=== PATIENT | male | born 1940 | race Caucasian/White ===

== ENCOUNTER 2017-08-07 16:24 | Inpatient (IN) | payer MEDICARE, OTHER ==
[2017-08-07 17:17] LABS: % BASOPHILS 2.8 % (0.0-2.0); % EOSINOPHILS 3.5 % (0.0-5.0); % LYMPHOCYTES 24.5 % (20.0-50.0); % MONOCYTES 9.6 % (2.0-10.0); % NEUTROPHILS 59.6 % (40.0-80.0); BASOPHILE ABSOLUTE 0.2 Th/cumm (0-0.2); EOSINOPHILE ABSOLUTE 0.2 Th/cmm (0.1-0.4); HEMATOCRIT 39.2 % (41.0-60); HEMOGLOBIN 13.1 gm/dL (12-16); LYMPHOCYTE ABSOLUTE 1.6 Th/cmm (1.5-3.0); MEAN CELL VOLUME 91.6 fl (80-99); MEAN CORPUSCULAR HEMOGLOBIN 30.6 pg (27.0-31.0); MEAN CORPUSCULAR HGB CONC 33.4 pg (28.0-36.0); MEAN PLATELET VOLUME 6.2 fl; MONOCYTE ABSOLUTE 0.6 Th/cmm (0.3-1.0); NEUTROPHILE ABSOLUTE 3.9 Th/cmm (1.8-8.0); PLATELET COUNT 337 Th/cmm (150-400); RED BLOOD COUNT 4.28 Mil/cmm (3.80-5.80); RED CELL DISTRIBUTION WIDTH 13.9 % (11.5-20.0); WHITE BLOOD COUNT 6.5 Th/cmm (4.8-10.8)
--- NOTE | 2017-08-07 17:21 | ED Physician Chart ---
ED Chief Complaint/HPI - Patient Information Date Seen:: 08/07/17 Time Seen:: 16:25 Chief Complaint:: Agitation History of Present Illness:: onset x 3 days of agitation and aggressive behavior; no report of trauma, H/As, S/T, neck pain, C/P, SOB, cough, Abd. Pain, A/N/V/D/C, fever, chills, SIs, or urinary s/s Allergies:: Allergies Allergy/AdvReac Type Severity Reaction Status Date / Time No Known Allergies Allergy Verified 08/07/17 16:37 Vitals:: Vital Signs - 8 hr 08/07/17 16:24 Temp 98.4 F HR 77 RR 16 BP 117/65 O2 Sat % 97 Historian:: Patient, EMS Review:: Nurse's Note Reviewed, Old Chart Reviewed, EMS run form Reviewed ED Review of Systems - Review of Systems General/Constitutional: No fever, No chills, No weight loss, Weakness, No diaphoresis, No edema, No loss of appetite Skin: No skin lesions, No rash, No bruising Head: No headache, No light-headedness Eyes: No loss of vision, No pain, No diplopia ENT: No earache, No nasal drainage, No sore throat, No tinnitus Neck: No neck pain, No swelling, No thyromegaly, No stiffness, No mass noted Cardio Vascular: No chest pain, No palpitations, No PND, No orthopnea, No edema Pulmonary: SOB, Cough, No sputum, Wheezing GI: No nausea, No vomiting, No diarrhea, No pain, No melena, No hematochezia, No constipation, No hematemesis G/U: No dysuria, No frequency, No hematuria, No nacturia Musculoskeletal: No bone or joint pain, No back pain, No muscle pain Endocrine: Polyuria, Polydipsia Psychiatric: Prior psych history, No depression, Anxiety, No suicidal ideation, No homicidal ideation, No auditory hallucination, No visual hallucination Hematopoietic: No bruising, No lymphadenopathy Allergic/Immuno: No urticaria, No angioedema Neurological: No syncope, No focal symptoms, Weakness, No paresthesia, No headache, No seizure, No dizziness, No confusion, No vertigo ED Past Medical History - Past Medical History Obtainable: Yes Past Medical History: HTN, DM, Asthma/COPD, PUD/GERD, Arthritis Family History: Diabetes Melitus, HTN Social History: Non Smoker, No Alcohol, No Drug Use, Single, Care Facility Surgical History: None Psychiatricy History: Bipolar Medication: Reviewed ED Physical Exam - Physical Examination General/Constitutional: Awake, Well-developed, well-nourished, Alert, No distress, GCS 15, Non-toxic appearing, Ambulatory Head: Atraumatic Eyes: Lids, conjuctiva normal, PERRL, EOMI Skin: Nl inspection, No rash, No skin lesions, No ecchymosis, Well hydrated, No lymphadenopathy ENMT: External ears, nose nl, TM canals nl, Nasal exam nl, Lips, teeth, gums nl , Oropharynx nl, Tonsils nl Neck: Nontender, Full ROM w/o pain, No JVD, No nuchal rigidity, No bruit, No mass, No stridor Respiratory: Nl effort/Exclusion, Clear to Auscultation, No Wheeze/Rhonchi/Rales Cardio Vascular: RRR, No murmur, gallop, rubs, NL S1 S2, Carotid/Femoral/Distal pulses equal bilaterally GI: No tenderness/rebounding/guarding, No organomegaly, No hernia, Normal BS's, Nondistended, No mass/bruits, No McBurney tenderness : No CVA tenderness Extremities: No tenderness or effusion, Full ROM, normal strength in all extremities, No edema, Normal digits & nails Neuro/Psych: Alert/oriented, DTR's symmetric, Normal sensory exam, Normal motor strength, Judgement/insight normal, Mood normal, Normal gait, No focal deficits Other Neuro/Psych comments:: + Psychomotor Agitation; no SIs; Mood/Affect: Labile Misc: Normal back, No paraspinal tenderness ED Labs/Radiology/EKG Results - Lab Results Comments:: unremarkable - EKG Interpretations EKG Time:: 17:01 Rate & Rhythm: 80; NSR Comments:: RBBB; non-specific st-t changes ED Septic Shock - . Is Septic Shock (SBP<90, OR Lactate>4 mmol\L) present?: No - <6hrs of presentation: Vital Signs: Vital Signs - 8 hr 08/07/17 16:24 Temp 98.4 F HR 77 RR 16 BP 117/65 O2 Sat % 97 ED Reassessment (Disposition) - Reassessment Reassessment Condition:: Improved - Diagnosis Diagnosis:: Dx: Agitation; Bipolar Disorder; Psychosis; Medical Clearance - Aftercare/Follow up Instructions Aftercare/Follow-Up Instructions:: Counseled pt regarding lab results/diagnosis & need follow up, Counseled pt & family regarding lab results/diagnosis & need follow up - Patient Disposition Discharge/Transfer:: Acute Care w/in this hosp Admitted to:: [facility] Condition at Disposition:: Stable, Improved ED Discharge Plan - Patient Disposition Instructions: Psychosis
[2017-08-07 19:12] LABS: ALB/GLOB RATIO 1.2 (1.0-1.8); ALBUMIN 3.8 gm/dL (4.2-5.5); ALKALINE PHOSPHATASE 90 U/L (34-104); ANION GAP 11.2 (7.0-16.0); BILIRUBIN,TOTAL 0.5 mg/dL (0.3-1.0); BUN - UREA NITROGEN 14 mg/dL (7-25); CARBON DIOXIDE 27.2 mEq/L (21.0-31.0); CHLORIDE 95 mEq/L (98-107); CHOLESTEROL 135 mg/dL (<200); CREATININE - SERUM 0.5 mg/dL (0.7-1.3); GLUCOSE 97 mg/dL (70-105); HDL -HIGH DENSITY LIPOPROTEIN 49 mg/dL (23-92); POTASSIUM SERUM 4.4 mEq/L (3.5-5.1); SGOT 19 U/L (13-39); SGPT/ALT 15 U/L (7-52); SODIUM SERUM 129 mEq/L (136-145); TOTAL PROTEIN,SERUM 6.9 gm/dL (6.0-8.3); TRIGLYCERIDES 53 mg/dL (<150)
[2017-08-07 19:33] LABS: ACETAMINOPHEN < 10.0 ug/mL (10.0-30.0); SALICYLATES (ASPIRIN) < 25.0 mg/L (30.0-100.0)
[2017-08-08 02:00] VITALS: BP 136/80
[2017-08-08] MEDS ORDERED: Magnesium Hydroxide (MOM) 30 mL UDC PO PRN (02:32)
[2017-08-08] MEDS ORDERED: INSULIN ASPART, RECOMBINANT 100 UNITS/ML SUBQ SCH (02:45)
[2017-08-08] MEDS: Multivitamin w/ Minerals Tab PO SCH (10:00)
[2017-08-08 15:45] LABS: A1C % 6.3 % (4.0-6.0)
--- NOTE | 2017-08-08 17:00 | Psychosocial Evaluation ---
DATE OF SERVICE: 08/08/2017 IDENTIFYING DATA: The patient is a 77-year-old male, resident of [facility]. Information by directly interviewing the patient as well as reviewing the admission papers. DISPOSITION HOSPITALIZATION: The patient is admitted on a voluntary basis in view of his acute agitation and confusion. CHIEF COMPLAINT: "What you need from me." HISTORY OF PRESENT ILLNESS: This is the first psychiatric hospitalization to [facility] for this patient who has been admitted on a voluntary basis from [facility] Acute ____. On the day of the hospitalization, the patient has been reported to be very irritable, angry and could not be contained and the patient has been ____ be very destructive. The patient could not be contained at a lower level of care and hence the patient has been transferred over here for further care. PAST PSYCHIATRIC HISTORY: Details are not known. MEDICAL HISTORY: Physical examination is requested to be done by Dr. Monzon. SUBSTANCE ABUSE HISTORY: None. PHYSICAL OR SEXUAL ABUSE HISTORY: None. LEGAL PROBLEMS: None at this time. STRENGTH AND ASSETS: The patient seems to be motivated. MENTAL STATUS EXAMINATION: The patient is a 77-year-old thin built, superficially cooperative. Eye contact is poor. Mood is irritable. Affect is constricted. The patient is getting easily irritable and agitated. The patient's coping skills are noted to be extremely poor. The patient has no insight into his illness. Coping skills are noted to be very poor. The patient has been trying to get out of the bed and even though he is not able to figure it out. He is not able to walk because of this neuropathy. The patient is alert and awake and the patient is aware that he is in the hospital, but short and long-term are noted to be very impaired. Attention span and concentration are noted to be poor at this time. The patient has short-term memory deficits, particularly nursing home memory seems to be little bit fair. The patient is screaming and yelling and has been having difficult time to follow the directions. DIAGNOSTIC IMPRESSION: AXIS I: 1a. Dementia and behavioral change secondary trait. 1b. Psychosis, not otherwise specified. AXIS II: None. AXIS III: Diabetes mellitus with neuropathy. IMMEDIATE TREATMENT PLAN: The patient is going to be observed on the inpatient unit, provided with supportive psychotherapy. The patient is going to be encouraged to participate in the groups and verbalize the concerns rather than to act out. ESTIMATED LENGTH OF STAY: 3-7 days. DISCHARGE CRITERIA: When he no longer a threat to self or others. [facility]# [id number]
[2017-08-09] MEDS: Multivitamin w/ Minerals Tab PO SCH (09:51)
--- NOTE | 2017-08-09 17:15 | Progress Notes ---
DATE: 08/09/2017 SUBJECTIVE: Staff was spoken to. The patient is interviewed. Mood is noted to be irritable. Affect is constricted. Insight and judgment at this time would be still impaired. Impulse control is poor. The patient is getting easily frustrated. Coping skills are noted to be poor. Sleep and appetite also noted to be very poor. The patient has both short-term as well as long-term deficits. ASSESSMENT: The patient is still impulsive. PLAN: To continue the patient with the supportive therapy and followup. JOB# [id number]
--- NOTE | 2017-08-10 09:02 | History & Physical ---
ADMIT DATE: INFORMANT: JESUS hernandez. CHIEF COMPLAINT: Psychosis. HISTORY OF PRESENT ILLNESS: A 77-year-old male who presented to the [facility] Unit with the onset of agitation and aggressive behavior for approximately 3 days according to his correction. The patient has verbally been yelling at people and threatening other residents, so the nursing facility sent him to [facility] for continued workup. The patient is currently not taking any psychiatric medication; and uses Ativan as needed. The patient has been seen by Psych; and at this point in time, no further adjustments have been made. PAST MEDICAL HISTORY: Hypertension, diabetes, generalized anxiety disorder, psychosis, and bipolar disorder. MEDICATIONS: Reviewed and reconciled. VITAL SIGNS: Temperature 98.4, pulse 77, respirations 16, and blood pressure 117/65. ALLERGIES: No known allergies. SOCIAL HISTORY: The patient lives at a correction. Denies drugs, alcohol, or tobacco. REVIEW OF SYSTEMS: GENERAL: No fever, chills, or weight loss. SKIN: No lesions, rash, or bruising. HEENT: He denies headaches, visual changes, or difficulty swallowing. CARDIOVASCULAR: No chest pain, shortness of breath, or palpitations. PULMONARY: No cough, wheezing, or shortness of breath. GASTROINTESTINAL: No abdominal pain, nausea, or vomiting. MUSCULOSKELETAL: Denies weakness or falls. PSYCHIATRIC: Admits to bipolar disorder. PHYSICAL EXAMINATION: GENERAL: NAD. HEENT: PERRLA. EOMI. NECK: Supple. Trachea midline. CARDIOVASCULAR: Regular rate and rhythm. CHEST: CTA bilaterally. No wheeze, rales, or rhonchi. ABDOMEN: Soft, nontender, and nondistended. Bowel sounds positive in all 4 quadrants. SKIN: No rashes or open wounds. MUSCULOSKELETAL: Muscle strength is in bilateral upper and lower extremity is 4/5. PSYCH: Psychomotor agitation with labile mood. ASSESSMENT: 1. Metabolic encephalopathy. 2. Bipolar disorder. 3. Psychosis. 4. Hypertension. 5. Diabetes. 6. Hyponatremia. PLAN: Admit to [facility]. Ativan has been started. Psychiatry is following. Mechanical soft diet. ____ amlodipine. Regular Insulin sliding scale, Accu-Cheks, Ambien as needed for insomnia. JOB# [id number]
[2017-08-10] MEDS: Multivitamin w/ Minerals Tab PO SCH (09:49)
--- NOTE | 2017-08-11 02:02 | Progress Notes ---
DATE: 08/10/2017 PSYCHIATRIC PROGRESS NOTE TIME PATIENT SEEN: Staff was spoken to. The patient is interviewed. Mood is noted to be dysphoric. Coping skills are noted to be poor. Insight and judgment are also noted to be very much impaired. No side effects to the medications are noted. The patient is isolative and withdrawn today. The patient gets easily frustrated and angry. ASSESSMENT: The patient is still impulsive, psychotic and demented. PLAN: To continue the patient with the supportive therapy. I encouraged the patient to verbalize the concerns rather than to act out. JOB# [id number]
[2017-08-11] MEDS: Multivitamin w/ Minerals Tab PO SCH (09:32)
--- NOTE | 2017-08-11 21:19 | Progress Notes ---
DATE: 08/11/2017 PSYCHIATRIC PROGRESS NOTE SUBJECTIVE: Staff was spoken to. The patient is interviewed. Mood is noted to be irritable. Affect is constricted. The patient's insight and judgment are noted to be still impaired. Impulse control is noted to be poor. The patient is insisting that he wants to talk to the administer of the hospital because he does not belong in here. The patient is reported to have been having problem with his sleep and the patient is also noted to be very paranoid and hence it is decided to add a small dose of the Seroquel at night time and the patient is going to be closely monitored and encouraged to verbalize the concerns rather than to act out. Please note that the patient is not ready to be discharged to a lower level of care. JOB# [id number]
--- NOTE | 2017-08-12 03:19 | Consultation ---
DATE OF CONSULTATION: REQUESTING PHYSICIAN: Jose Armando Butler M.D. TYPE OF CONSULTATION: Psychology. HISTORY OF PRESENT ILLNESS: The following is by review of the medical record and by the patient's self report. The patient is a 77-year-old male who is a resident of [facility]. The patient is being admitted due to acute agitation and increased confusion. According to the staff at the patient's facility, he has been reported to be irritable and angry as well as having uncontrollable behavior. The patient denied any incidents. The patient did not answer questions about suicidal ideation, plan or intention, but did shake his head no to thoughts of self harm. PAST MEDICAL HISTORY: Please see history and physical by Dr. Monzon. PAST PSYCHIATRIC HISTORY: Records unavailable. SUBSTANCE ABUSE HISTORY: None. PSYCHOSOCIAL HISTORY: The patient is a resident of [facility]. The patient did not answer questions about family history or methodist affiliation. The patient did not answer questions about occupational history or educational history. The patient denies any history of physical or sexual abuse or any current legal problems. MENTAL STATUS EXAMINATION: The patient appears to be his stated age. The patient's attitude is superficially cooperative. Eye contact is fair to poor. Speech is normal. Mood is irritable. Affect is constricted. Thought process shows to be concrete and easily distractible. The patient denied any suicidal ideation, plan or intention. The patient denied any auditory or visual hallucinations. The patient's behavior has been difficult to redirect. On the unit, the patient has been having difficulty following staff directions and is having yelling episodes. The patient is easily agitated. Impulse control is inadequate. Concentration is poor. The patient was unable to sustain focus and attention. The patient did not participate in a memory assessment. The patient's immediate and short term memory are possibly impaired. Long-term memory needs further evaluation, but appears to be fair. The patient's sensorium is alert and oriented to person and place. The patient did not participate in interpretation of proverbs. Insight is poor. Judgment is compromised. DIAGNOSTIC IMPRESSION: AXIS I: 1. Dementia with behavioral disturbance. 2. Psychosis, not otherwise specified. AXIS II: Deferred. AXIS III: Please see history and physical. TREATMENT PLAN: The patient has been seen by Dr. Butler for psychiatric evaluation and for the management of the patient's psychotropic medications. We will provide supportive psychotherapy to include coping strategies for phase of life issues. We will provide de-escalation as well as motivational enhancement for the patient to become compliant and stay compliant with all aspects of his care and treatment plan as well as to follow through with staff direction. We will encourage the patient to verbalize his concerns versus acting out. We will continue to provide supportive therapy throughout the patient's stay. Thank you, Dr. Butler for this consult and the opportunity to participate with you in this patient's care. JOB# [id number] [place]
[2017-08-12] MEDS: Multivitamin w/ Minerals Tab PO SCH (09:40)
--- NOTE | 2017-08-13 07:36 | Progress Notes ---
DATE: 08/12/2017 Staff was spoken to. The patient is interviewed. Mood is noted to be irritable. Affect is constricted. Insight and judgment are noted to be poor. Impulse control is noted to be poor. The patient is screaming and yelling and stating that he should not be here. He is trying to call the police. The patient has no insight into his illness. The patient is getting easily frustrated. In view of ____, it is decided to encourage the patient to verbalize the concerns and the dose of the Seroquel is going to be increased to 25 mg at bedtime and the patient is going to be followed up with supportive therapy. JOB# [id number]
[2017-08-13] MEDS: Multivitamin w/ Minerals Tab PO SCH (10:38)
[2017-08-13] MEDS: INSULIN ASPART SLIDING SCALE 100 UNITS/ML UNIT SUBQ SCH (21:07)
--- NOTE | 2017-08-13 23:40 | Progress Notes ---
DATE: 08/13/2017 SUBJECTIVE: Staff was spoken to. The patient is interviewed. Mood is noted to be irritable. Affect is constricted. Coping skills are noted to be poor. Sleep and appetite are also noted to be very poor. The patient has been having difficult time to cope with the stress. The patient is currently on Seroquel 25 mg for his paranoia, agitation and the patient has been able to tolerate it. No side effects to the medications are noted. ASSESSMENT: The patient is still paranoid. PLAN: To continue the patient with the supportive therapy. I encouraged the patient to verbalize the concerns rather than to act out. JOB# [id number]
[2017-08-14] MEDS: INSULIN ASPART SLIDING SCALE 100 UNITS/ML UNIT SUBQ SCH ×4 (06:54→20:59)
[2017-08-14] MEDS: Multivitamin w/ Minerals Tab PO SCH (09:34)
--- NOTE | 2017-08-15 01:49 | Progress Notes ---
DATE: 08/14/2017 PSYCHIATRIC PROGRESS NOTE SUBJECTIVE: Staff was spoken to. The patient is interviewed. Mood is noted to be irritable. Affect is constricted. Insight and judgment are noted to be still impaired. The patient tends to scream and yell, but the patient needs to be redirected at this time. No side effects to the medications are noted. The patient has been having difficult time to participate in the groups. The patient is currently on 25 mg of the Seroquel at night time and has been able to tolerate. The patient in view of the impulsivity, it is decided to add a low dose of the Depakote, which is going to be given 125 mg twice a day and the patient is going to be followed up with the supportive therapy. JOB# [id number]
[2017-08-15] MEDS: INSULIN ASPART SLIDING SCALE 100 UNITS/ML UNIT SUBQ SCH ×4 (06:50→20:37)
[2017-08-15] MEDS: Multivitamin w/ Minerals Tab PO SCH (09:22)
--- NOTE | 2017-08-15 17:52 | Progress Notes ---
DATE: 08/15/2017 PSYCHIATRIC PROGRESS NOTE SUBJECTIVE: Staff was spoken to. The patient is interviewed. Mood is noted to be irritable. Affect is constricted. Insight and judgment at this time are noted to be still impaired. The patient has been placed on 120 mg of the Depakote to contain mood swings. The patient is also receiving the Seroquel 25 mg at bedtime. No side effects to medications are noted. ASSESSMENT: The patient is still having irritability and mood swings. PLAN: To continue the patient with the current medications and continue the Seroquel for paranoia and followup. JOB# [id number]
[2017-08-16] MEDS: INSULIN ASPART SLIDING SCALE 100 UNITS/ML UNIT SUBQ SCH ×4 (06:46→21:23)
[2017-08-16] MEDS: Multivitamin w/ Minerals Tab PO SCH (09:43)
--- NOTE | 2017-08-17 03:34 | Progress Notes ---
DATE: 08/16/2017 SUBJECTIVE: Staff was spoken to. The patient is interviewed. Mood is noted to be irritable. Affect is constricted. The patient is getting easily frustrated. Mood swings are noted. The patient is currently on Seroquel and Depakote and has been able to tolerate the medications. No side effects to the medications are noted today. ASSESSMENT: The patient is still having mood swings, but isolative and withdrawn. PLAN: To continue the patient with the supportive therapy. I encouraged the patient to verbalize the concerns rather than to act out. JOB# [id number]
[2017-08-17] MEDS: INSULIN ASPART SLIDING SCALE 100 UNITS/ML UNIT SUBQ SCH ×3 (06:54→20:33)
[2017-08-17] MEDS: Multivitamin w/ Minerals Tab PO SCH (08:58)
--- NOTE | 2017-08-18 05:18 | Progress Notes ---
DATE: 08/17/2017 SUBJECTIVE: Staff was spoken to. The patient is interviewed. Mood is noted to be anxious. Affect is constricted. Insight and judgment are improving. Impulse control seems to be fair. No side effects to the medications are noted. The patient has been trying to participate in the groups, but participation is noted to be very minimal during the daytime. ASSESSMENT: The patient is stabilizing today ____ a major behavioral problem. PLAN: To discharge the patient today for followup on an outpatient basis. JOB# [id number]
== END 2017-08-17 23:20 | DRG 884 ==
LOC: ER 16:24 → GERO 21:30
PROVIDERS: ADMIT Psychiatry & Neurology Psychiatry; ATTEND Psychiatry & Neurology Psychiatry
DX: F03.91 Unspecified dementia, unspecified severity, with behavioral disturbance (principal); G93.41 Metabolic encephalopathy; E87.1 Hypo-osmolality and hyponatremia; F29 Unspecified psychosis not due to a substance or known physiological condition; E11.40 Type 2 diabetes mellitus with diabetic neuropathy, unspecified; I10 Essential (primary) hypertension; J44.9 Chronic obstructive pulmonary disease, unspecified; K27.9 Peptic ulcer, site unspecified, unspecified as acute or chronic, without hemorrhage or perforation; K21.9 Gastro-esophageal reflux disease without esophagitis; M19.90 Unspecified osteoarthritis, unspecified site; F31.9 Bipolar disorder, unspecified; F41.1 Generalized anxiety disorder; Z83.3 Family history of diabetes mellitus; Z82.49 Family history of ischemic heart disease and other diseases of the circulatory system
CPT/HCPCS: 36415-UA; 80053-TC; 80061-TC; 80320-TC; 80329-TC; 82948-90; 83036-90; 84443-TC; 85025-TC; 86592-TC; 93005; J1815; Z7610

== ENCOUNTER 2018-08-25 21:22 | Inpatient (IN) | payer MEDICARE, OTHER ==
--- NOTE | 2018-08-25 22:12 | ED Physician Chart ---
ED Chief Complaint/HPI - Patient Information Date Seen:: 08/25/18 Time Seen:: 22:08 Chief Complaint:: agitation History of Present Illness:: 78 yr old male here for geropsych evaluation Allergies:: Allergies Allergy/AdvReac Type Severity Reaction Status Date / Time No Known Allergies Allergy Verified 08/07/17 16:37 Vitals:: Vital Signs - 8 hr 08/25/18 21:30 Temp 98.1 F HR 70 RR 18 BP 137/77 O2 Sat % 95 ED Review of Systems - Review of Systems General/Constitutional: No fever, No chills, No weight loss, No weakness, No diaphoresis, No edema, No loss of appetite Skin: No skin lesions, No rash, No bruising Head: No headache, No light-headedness Eyes: No loss of vision, No pain, No diplopia ENT: No earache, No nasal drainage, No sore throat, No tinnitus Neck: No neck pain, No swelling, No thyromegaly, No stiffness, No mass noted Cardio Vascular: No chest pain, No palpitations, No PND, No orthopnea, No edema Pulmonary: No SOB, No cough, No sputum, No wheezing GI: No nausea, No vomiting, No diarrhea, No pain, No melena, No hematochezia, No constipation, No hematemesis G/U: No dysuria, No frequency, No hematuria Musculoskeletal: No bone or joint pain, No back pain, No muscle pain Endocrine: No polyuria, No polydipsia Psychiatric: No prior psych history, No depression, No anxiety, No suicidal ideation Hematopoietic: No bruising, No lymphadenopathy Allergic/Immuno: No urticaria, No angioedema Neurological: No syncope, No focal symptoms, No weakness, No paresthesia, No headache, No seizure, No dizziness, No confusion, No vertigo ED Past Medical History - Past Medical History Past Medical History: Asthma/COPD, Other (muscle weakness abnormal posture muscle weakness hemiplegia cva) Family Medical History - Family Member Father History Unknown: Yes Hx Family Hypertension: Yes Hx Family Diabetes: Yes ED Physical Exam - Physical Examination General/Constitutional: Awake Head: Atraumatic Eyes: Lids, conjuctiva normal Skin: Nl inspection ENMT: External ears, nose nl Respiratory: Nl effort/Exclusion Cardio Vascular: No murmur, gallop, rubs GI: No tenderness/rebounding/guarding : No CVA tenderness Extremities: No tenderness or effusion Neuro/Psych: Alert/oriented ED Assessment - Assessment General Assessment: increasing agitation depression ED Septic Shock - . Is Septic Shock (SBP<90, OR Lactate>4 mmol\L) present?: No - <6hrs of presentation: Vital Signs: Vital Signs - 8 hr 08/25/18 21:30 Temp 98.1 F HR 70 RR 18 BP 137/77 O2 Sat % 95 ED Reassessment (Disposition) - Reassessment Reassessment:: geropsych evaluation for increasing depression and agitation and medical clearance - Diagnosis Diagnosis:: as above - Patient Disposition Discharge/Transfer:: Acute Care w/in this hosp Admitted to:: Med/Surg Condition at Disposition:: Stable
[2018-08-25 23:29] VITALS: BP 129/66
[2018-08-25] MEDS ORDERED: Maalox 30 mL Cup PO PRN (23:30)
[2018-08-25] MEDS ORDERED: Magnesium Hydroxide (MOM) 30 mL UDC PO PRN (23:30)
[2018-08-26] MEDS ORDERED: Magnesium Hydroxide (MOM) 30 mL UDC PO PRN (05:59)
[2018-08-26] MEDS ORDERED: Acetaminophen 500 MG TAB PO PRN (05:59)
[2018-08-26] MEDS ORDERED: Hydrocodone/APAP 5mg/325mg Tab PO PRN (05:59)
[2018-08-26] MEDS: Multivitamin w/ Minerals Tab PO SCH (08:43)
[2018-08-26] MEDS ORDERED: Multivitamin Tab PO SCH (09:00)
[2018-08-26] MEDS ORDERED: VALPROIC ACID 125 MG PO SCH (09:00)
--- NOTE | 2018-08-26 14:51 | Psychiatric Evaluation ---
DATE OF SERVICE: 08/25/2018 IDENTIFYING DATA: The patient is a 78-year-old male, resident of [facility]. Information obtained by directly interviewing the patient as well as reviewing the admission papers and talking to the staff members. JUSTIFICATION OF HOSPITALIZATION: The patient is admitted for his aggressive behavior and confused state. CHIEF COMPLAINT: "I don't belong in here, get me back to facility." HISTORY OF PRESENT ILLNESS: This is the second psychiatric hospitalization for this patient who was hospitalized under my care in 2018. The patient has been reported to have been very agitated, screaming and yelling and has been cursing the staff members and the patient could not be contained at a lower level of care and the patient has to be referred over here for further care. PAST PSYCHIATRIC HISTORY: Please refer to the above. MEDICAL HISTORY: Physical examination is requested to be done by Dr. Perez. SUBSTANCE ABUSE HISTORY: None. PHYSICAL OR SEXUAL ABUSE HISTORY: None. MENTAL STATUS EXAMINATION: The patient is a 78-year-old, looking his stated age. The patient is very angry and upset. The patient is curling up in the bed and does not want to even get out of the bed. The patient is stating that he is not able to walk out of the bed because of the neuropathy and he needs to have a wheelchair. The patient is very paranoid at this time. Attention span and concentration are noted to be poor, but the patient is getting easily irritable and angry. Coping skills at this time are noted to be extremely poor. Insight and judgment are also noted to be very much impaired. The patient's behavior is a major problem at this time. DIAGNOSTIC IMPRESSION: AXIS I: Psychotic disorder, not otherwise specified. B. Dementia and behavioral change, secondary trait. AXIS II: None. AXIS III: Diabetes mellitus and as per Dr. Perez. IMMEDIATE TREATMENT PLAN: The patient is going to be observed on inpatient unit, provided with supportive psychotherapy. The patient is going to be closely monitored and encouraged to participate in the groups and verbalize the concerns. The patient is going to be continued on the valproic acid and Seroquel. ESTIMATED LENGTH OF STAY: 3-5 days. DISCHARGE CRITERIA: When the patient is no longer a threat to self or others and be able to cope up with the stress. JOB# [id number]
--- NOTE | 2018-08-26 17:50 | History and Physical ---
History of Present Illness - HPI Chief Complaint: Increased in agitation HPI: Patient was send from SNF for increased in agitation evaluation. Vital Signs: Last Vital Signs Temp 98.7 F 08/26/18 14:18 Pulse 73 08/26/18 14:18 Resp 18 08/26/18 14:18 BP 100/53 08/26/18 14:18 Pulse Ox 93 08/26/18 14:18 Past Medical History Cardiovascular: Report: CAD Pulmonary: Report: COPD [employer] OFFICER: Report: No Pertinent Hx GI: Report: No Pertinent Hx Psych: Report: Depression Musculoskeletal: Report: Weakness, Stiffness, Other ( Left Hemiplegia) Rheumatologic: Report: No pertinent Hx Infectious Disease: Report: No Pertinent Hx Renal/: Report: No Pertinent Hx Endocrine: Report: No Pertinent Hx Dermatology: Report: No Pertinent Hx Family Medical History - Family Member Father History Unknown: Yes Ethnicity: Unknown Living Status: Unknown Hx Family Hypertension: Yes Hx Family Diabetes: Yes Social History Smoke: No Alcohol: None Drugs: None Lives[facility] Domestic Violence: Negative - Medications Home Medications: Home Medication Medication Instructions Recorded Type Acetaminophen [Tylenol Extra 500 mg PO Q6HR PRN 08/25/18 History Strength] Bisacodyl [Dulcolax 10 Mg Supp] 10 mg .ROUTE DAILY PRN 08/25/18 History Hydrocodone/Acetaminophen [[place] 1 each PO Q6H PRN 08/25/18 History 5-325 Tablet] Magnesium Hydroxide [Milk of 30 ml PO DAILY PRN 08/25/18 History Magnesia] Multivitamin w/ Minerals 1 tab PO DAILY 08/25/18 History [Theragran M] Nitroglycerin [Nitroglycerin*] 0.4 mg SL [id number] PRN 08/25/18 History Ondansetron [Zofran ODT] 4 mg PO Q4H PRN 08/25/18 History QUEtiapine Fumarate [SEROquel] 12.5 mg PO HS 08/25/18 History Valproic Acid (As Sodium Salt) 125 mg PO BID 08/25/18 History [Depakene] - Allergies Allergies/Adverse Reactions: Allergies Allergy/AdvReac Type Severity Reaction Status Date / Time No Known Allergies Allergy Verified 08/07/17 16:37 Review of Systems - Review of Systems Constitutional: Report: No Significant Eyes: Report: No Significant ENT: Report: No Significant Respiratory: Report: No Significant Cardiovascular: Report: No Significant Gastrointestinal: Report: No Significant Genitourinary: Report: No Significant Musculoskeletal: Report: No Significant Skin: Report: No Significant Neurological: Report: No Significant Physical Exam - Physical Exam HEENT: Report: Ears Nose Throat within normal limits Neck: Report: Within normal limits Cardiovascular Systems: Report: Regular, Rate and Rhythm Respiratory: Report: Breath Sounds are within normal limits Abdomen: Report: Non-tender to palpation Back: Report: Inspection of back is within normal limits. Extremities: Report: Extremities are contracted, Other (Left side hemiparesis) Skin: Report: Color of skin is within normal limits Neuro/Psych: Report: Disoriented to name time or place, Depressed affect - Assessment Assessment: Patient is awake , alert, calm in no acute distress. Dx: Increased in agitation , COPD, Left hemiplegia, S/P CVA. - Plan Plan: Patient is follow by Psychiatry, continue with SNF meds. Will continue to monitor.
[2018-08-27] MEDS: Multivitamin w/ Minerals Tab PO SCH ×2 (08:29→09:14)
--- NOTE | 2018-08-27 12:22 | General Progress Note ---
Subjective - Review of Systems Service Date: 08/27/18 Subjective: I am ok Objective - Physical Exam Vitals and I&O: Vital Signs Temp 97.8 F 08/27/18 05:03 Pulse 71 08/27/18 05:03 Resp 19 08/27/18 05:03 BP 135/68 08/27/18 05:03 Pulse Ox 93 08/27/18 05:03 Intake & Output 08/26/18 08/27/18 08/27/18 18:59 06:59 18:59 Intake Total 480 Balance 480 Intake: Oral 480 Other: # Voids 2 2 # Bowel Movements 2 Active Medications: Current Medications Acetaminophen (Tylenol) 650 mg PO Q4HR PRN PRN Reason: Mild Pain / Temp above 100 Stop: 10/24/18 23:29 Acetaminophen (Tylenol Extra Strength) 500 mg PO Q6HR PRN PRN Reason: Pain (Mild) Stop: 10/25/18 05:58 Acetaminophen/Hydrocodone Bitart ([place] 5mg/325mg) 1 tab PO Q6H PRN PRN Reason: Pain (Severe) Stop: 10/25/18 05:58 Al Hydrox/Mg Hydrox/Simethicone (Maalox) 30 ml PO Q4HR PRN PRN Reason: GI DISTRESS Stop: 10/24/18 23:29 Bisacodyl (Dulcolax 10 Mg Supp) 10 mg RC DAILY PRN PRN Reason: Constipation Stop: 10/25/18 05:58 Lorazepam (Ativan) 0.5 mg PO Q4HR PRN; Protocol PRN Reason: Anxiety Stop: 09/24/18 23:29 Magnesium Hydroxide (Milk Of Magnesia) 30 ml PO HS PRN PRN Reason: Constipation Magnesium Hydroxide (Milk Of Magnesia) 30 ml PO DAILY PRN PRN Reason: Constipation Stop: 10/25/18 05:58 Nitroglycerin (Nitrostat) 0.4 mg SL UD PRN PRN Reason: Chest Pain Stop: 10/25/18 05:58 Ondansetron HCl (Zofran Odt) 4 mg PO Q4H PRN PRN Reason: Nausea Stop: 10/25/18 05:58 Quetiapine Fumarate (Seroquel) 12.5 mg PO HS NAVIN; Protocol Stop: 10/25/18 20:59 Last Admin: 08/26/18 20:33 Dose: 12.5 mg Valproate Sodium (Depakene) 125 mg PO BID [facility]; Protocol Stop: 10/25/18 08:59 Last Admin: 08/27/18 09:13 Dose: Not Given General: Alert, Other (confused) HEENT: Atraumatic Neck: Supple Cardiovascular: Regular rate Lungs: Clear to auscultation Abdomen: Bowel sounds Extremities: Other (left hemiplegia) Neurological: Other (Non ambulatory) Skin: Other (warm and dry) Psych/Mental Status: Other (Confused, not oriented) Assessment/Plan - Assessment Assessment: Patient is awake , alert, calm in no acute distress. Dx: Increased in agitation , COPD, Left hemiplegia, S/P CVA. - Plan Plan: Patient is follow by Psychiatry, continue with SNF meds. Will continue to monitor.
--- NOTE | 2018-08-27 20:34 | Progress Notes ---
DATE: 08/27/2018 SUBJECTIVE: Staff was spoken to. The patient is interviewed. Mood is noted to be irritable. Affect is constricted. Insight and judgment at this time are noted to be still impaired. Impulse control is limited. The patient is reluctant to comply with any of the medications. The patient has no insight into his illness. The patient is getting easily agitated. ASSESSMENT: The patient is still paranoid. PLAN: To continue the patient with the supportive therapy, encouraged the patient to verbalize the concerns rather than to act out. JOB# [id number]
[2018-08-28] MEDS: Multivitamin w/ Minerals Tab PO SCH (09:48)
--- NOTE | 2018-08-28 14:36 | Progress Notes ---
DATE: 08/28/2018 SUBJECTIVE: Staff was spoken to. The patient is interviewed. Mood is noted to be irritable. Affect is constricted. Insight and judgment at this time are noted to be still impaired. Impulse control is noted to be poor. Coping skills are noted to be very poor. The patient has been having difficult time to cope with the stress. No side effects to the medications are noted, but the patient has been reluctant to comply with the medication as requested by the staff. The patient has been having difficult time to take the medication and hence is decided to place the patient on Haldol ____ 2 mg p.o. b.i.d. Plan to continue the patient with the current medications and discontinue the Seroquel and follow the patient up. JOB# [id number]
--- NOTE | 2018-08-28 15:37 | General Progress Note ---
Subjective - Review of Systems Service Date: 08/28/18 Subjective: I am ok Objective - Physical Exam Vitals and I&O: Vital Signs Temp 97.6 F 08/28/18 14:00 Pulse 77 08/28/18 14:00 Resp 18 08/28/18 14:00 BP 102/54 08/28/18 14:00 Pulse Ox 97 08/28/18 14:00 Intake & Output 08/27/18 08/28/18 08/28/18 18:59 06:59 18:59 Intake Total 120 Balance 120 Intake: Oral 120 Other: # Voids 3 # Bowel Movements 2 Active Medications: Current Medications Acetaminophen (Tylenol) 650 mg PO Q4HR PRN PRN Reason: Mild Pain / Temp above 100 Stop: 10/24/18 23:29 Acetaminophen (Tylenol Extra Strength) 500 mg PO Q6HR PRN PRN Reason: Pain (Mild) Stop: 10/25/18 05:58 Acetaminophen/Hydrocodone Bitart ([place] 5mg/325mg) 1 tab PO Q6H PRN PRN Reason: Pain (Severe) Stop: 10/25/18 05:58 Al Hydrox/Mg Hydrox/Simethicone (Maalox) 30 ml PO Q4HR PRN PRN Reason: GI DISTRESS Stop: 10/24/18 23:29 Bisacodyl (Dulcolax 10 Mg Supp) 10 mg RC DAILY PRN PRN Reason: Constipation Stop: 10/25/18 05:58 Haloperidol Lactate (Haldol Concentrate 10mg/5ml Susp) 2 mg PO BID [facility]; Protocol Stop: 10/27/18 16:59 Lorazepam (Ativan) 0.5 mg PO Q4HR PRN; Protocol PRN Reason: Anxiety Stop: 09/24/18 23:29 Last Admin: 08/27/18 21:07 Dose: 0.5 mg Magnesium Hydroxide (Milk Of Magnesia) 30 ml PO HS PRN PRN Reason: Constipation Magnesium Hydroxide (Milk Of Magnesia) 30 ml PO DAILY PRN PRN Reason: Constipation Stop: 10/25/18 05:58 Nitroglycerin (Nitrostat) 0.4 mg SL UD PRN PRN Reason: Chest Pain Stop: 10/25/18 05:58 Ondansetron HCl (Zofran Odt) 4 mg PO Q4H PRN PRN Reason: Nausea Stop: 10/25/18 05:58 Valproate Sodium (Depakene) 125 mg PO BID [facility]; Protocol Stop: 10/25/18 08:59 Last Admin: 08/28/18 09:48 Dose: 125 mg General: Alert, Other (confused) HEENT: Atraumatic Neck: Supple Cardiovascular: Regular rate Lungs: Clear to auscultation Abdomen: Bowel sounds Extremities: Other (left hemiplegia) Neurological: Other (Non ambulatory) Skin: Other (warm and dry) Psych/Mental Status: Other (Confused, not oriented) Assessment/Plan - Assessment Assessment: Patient is awake , alert, calm in no acute distress. Dx: Increased in agitation , COPD, Left hemiplegia, S/P CVA. - Plan Plan: Patient is follow by Psychiatry, continue with SNF meds. Will continue to monitor.
[2018-08-28] MEDS: Haldol Oral Sol.(concentrate) 10 mg/5 mL Udc PO SCH (16:55)
--- NOTE | 2018-08-28 19:58 | Consultation ---
DATE OF CONSULTATION: 08/27/2018 REFERRING PHYSICIAN: Jose Armando Butler M.D. TYPE OF CONSULTATION: Psychology. HISTORY OF PRESENT ILLNESS: The patient is a 78-year-old male. The patient is a resident of [facility]. The following is by record review and by the patient's self-report. The patient is being admitted for aggressive behavior. Upon interview, the patient states that he does not belong here and is demanding to be discharged and return to his placement. Staff at the patient's facility report that he had become very agitated with screaming and yelling episodes as well as verbally abusive towards staff members. During the clinical interview the patient is using profanity towards this policy writer typist and is easily agitated and generally resistant. PAST MEDICAL HISTORY: Please see history and physical by Dr. Perez. PAST PSYCHIATRIC HISTORY: The patient has a previous psychiatric hospitalization here on the geropsychiatric unit. The patient is under the care of a psychiatrist at his placement. The patient has a history of dementia with behavioral disturbance. SUBSTANCE ABUSE HISTORY: The patient declined to answer these questions. PSYCHOSOCIAL HISTORY: The patient did not answer questions about occupational or educational history. The patient states that he is a [employer]. The patient states that he is legally . He did not answer questions about whether he has any children or any family members involved in his care. The patient did not answer questions about history of physical or sexual abuse or current legal problems. The patient expects to return to his placement and is demanding to talk with the manager of case management and/or school social worker and the attending psychiatrist to be discharged immediately. MENTAL STATUS EXAMINATION: The patient appears to be his stated age. Attitude is superficially cooperative. Mood is depressed. Affect is constricted. Speech is spontaneous. Eye contact is poor. The patient denied any suicidal ideation, plan or intention. He denied any hallucinations or delusions. However, there may be paranoid ideation present. Behavior is easily agitated. Impulse control is poor. Concentration is poor. The patient did not participate in the memory assessment. Sensorium is oriented to self and place. He did not participate in the interpretation of proverbs. Insight is poor. Judgement is compromised. DIAGNOSTIC IMPRESSION: AXIS I: 1. Psychotic disorder, not otherwise specified. 2. History of dementia with behavioral disturbance. AXIS II: Deferred. AXIS III: Per Dr. Perez. TREATMENT PLAN: The patient has been seen by Dr. Butler for psychiatric evaluation and for the management of the patient's psychotropic medications. We will provide cognitive behavioral therapy to reduce the patient's depression. We will include reflective listening and insight oriented approaches to assist the patient in increasing his coping strategies. We will provide stress management. We will provide coping strategies for phase of life issues. We will continue to provide cognitive and behavioral redirection and encourage the patient to be able to demonstrate emotional and self-regulation and to verbalize concerns versus acting out. We will monitor the patient for any suicidal ideation, plan or intention. We will provide reality integration as well. Thank you, Dr. Butler, for this consult and the opportunity to participate in this patient's care. JOB# [id number] [place]
[2018-08-29] MEDS: Multivitamin w/ Minerals Tab PO SCH (08:47)
[2018-08-29] MEDS: Haldol Oral Sol.(concentrate) 10 mg/5 mL Udc PO SCH ×2 (08:48→16:45)
--- NOTE | 2018-08-29 12:39 | General Progress Note ---
Subjective - Review of Systems Service Date: 08/29/18 Subjective: I am ok Objective - Physical Exam Vitals and I&O: Vital Signs Temp 98 F 08/29/18 05:52 Pulse 76 08/29/18 05:52 Resp 18 08/29/18 05:52 BP 116/65 08/29/18 05:52 Pulse Ox 97 08/29/18 05:52 Intake & Output 08/28/18 08/29/18 08/29/18 18:59 06:59 18:59 Intake Total 960 240 Balance 960 240 Weight (lbs) 65.771 kg Intake: Oral 960 240 Other: # Voids 3 3 # Bowel Movements 1 0 Weight Source Bedscale Active Medications: Current Medications Acetaminophen (Tylenol) 650 mg PO Q4HR PRN PRN Reason: Mild Pain / Temp above 100 Stop: 10/24/18 23:29 Acetaminophen (Tylenol Extra Strength) 500 mg PO Q6HR PRN PRN Reason: Pain (Mild) Stop: 10/25/18 05:58 Acetaminophen/Hydrocodone Bitart ([place] 5mg/325mg) 1 tab PO Q6H PRN PRN Reason: Pain (Severe) Stop: 10/25/18 05:58 Al Hydrox/Mg Hydrox/Simethicone (Maalox) 30 ml PO Q4HR PRN PRN Reason: GI DISTRESS Stop: 10/24/18 23:29 Bisacodyl (Dulcolax 10 Mg Supp) 10 mg RC DAILY PRN PRN Reason: Constipation Stop: 10/25/18 05:58 Haloperidol Lactate (Haldol Concentrate 10mg/5ml Susp) 2 mg PO BID [facility]; Protocol Stop: 10/27/18 16:59 Last Admin: 08/29/18 08:48 Dose: 2 mg Lorazepam (Ativan) 0.5 mg PO Q4HR PRN; Protocol PRN Reason: Anxiety Stop: 09/24/18 23:29 Last Admin: 08/29/18 03:02 Dose: 0.5 mg Magnesium Hydroxide (Milk Of Magnesia) 30 ml PO HS PRN PRN Reason: Constipation Magnesium Hydroxide (Milk Of Magnesia) 30 ml PO DAILY PRN PRN Reason: Constipation Stop: 10/25/18 05:58 Nitroglycerin (Nitrostat) 0.4 mg SL UD PRN PRN Reason: Chest Pain Stop: 10/25/18 05:58 Ondansetron HCl (Zofran Odt) 4 mg PO Q4H PRN PRN Reason: Nausea Stop: 10/25/18 05:58 Valproate Sodium (Depakene) 125 mg PO BID [facility]; Protocol Stop: 10/25/18 08:59 Last Admin: 08/29/18 08:48 Dose: 125 mg General: Alert, Other (confused) HEENT: Atraumatic Neck: Supple Cardiovascular: Regular rate Lungs: Clear to auscultation Abdomen: Bowel sounds Extremities: Other (left hemiplegia) Neurological: Other (Non ambulatory) Skin: Other (warm and dry) Psych/Mental Status: Other (Confused, not oriented) Assessment/Plan - Assessment Assessment: Patient is awake , alert, calm in no acute distress. Dx: Increased in agitation , COPD, Left hemiplegia, S/P CVA. - Plan Plan: Patient is follow by Psychiatry, continue with SNF meds. Will continue to monitor.
--- NOTE | 2018-08-29 14:10 | Progress Notes ---
DATE: 08/29/2018 PSYCHIATRIC PROGRESS NOTE SUBJECTIVE: Staff was spoken to. The patient is interviewed. Mood is noted to be less irritable. Affect is appropriate. The patient's mood swings are coming under control. Once the patient has been placed on the Haldol 2 mg twice a day in the liquid form, the patient's irritability has come down. No side effects to the medications are noted. The patient is stating there is nothing wrong with him. There is no reason for him to take the medication. The patient has no insight into his illness. ASSESSMENT: The patient is still paranoid. PLAN: To continue the patient with the supportive therapy. I encouraged the patient to verbalize the concerns rather than to act out. [facility]# [id number]
[2018-08-30] MEDS: Multivitamin w/ Minerals Tab PO SCH (08:45)
[2018-08-30] MEDS: Haldol Oral Sol.(concentrate) 10 mg/5 mL Udc PO SCH (08:46)
[2018-08-30] MEDS: Haloperidol Lactate Oral sol. 2 mg/mL Udc PO SCH (17:14)
--- NOTE | 2018-08-31 01:48 | Progress Notes ---
DATE: 08/30/2018 SUBJECTIVE: Staff was spoken to. The patient is interviewed. Mood is noted to be irritable. Affect is constricted. The patient is isolative and withdrawn today. The patient is reporting the medication is making him too sleepy. The patient has been reluctant to comply with the medication until yesterday and now the patient has been taking the medication, which is making him to be too sleepy. ASSESSMENT: The patient's impulsivity is coming under control. PLAN: To continue the patient with the supportive therapy and followup. JOB# [id number]
[2018-08-31] MEDS: Haloperidol Lactate Oral sol. 2 mg/mL Udc PO SCH ×2 (09:20→16:07)
[2018-08-31] MEDS: Multivitamin w/ Minerals Tab PO SCH (09:21)
--- NOTE | 2018-08-31 10:22 | Internal Medicine Prog Note ---
Internal Medicine Subjective - Subjective Service Date: 08/31/18 (no events) Patient is:: awake Per staff patient has:: no adverse event Internal Medicine Objective - Physical Exam Vitals and I&O: Vital Signs Temp 97.9 F 08/31/18 04:33 Pulse 78 08/31/18 04:33 Resp 19 08/31/18 04:33 BP 105/66 08/31/18 04:33 Pulse Ox 91 08/31/18 04:33 Intake & Output 08/30/18 08/31/18 08/31/18 18:59 06:59 18:59 Intake Total 950 480 Balance 950 480 Intake: Oral 950 480 Other: # Voids 4 2 # Bowel Movements 2 Active Medications: Current Medications Acetaminophen (Tylenol Extra Strength) 500 mg PO Q6HR PRN PRN Reason: Pain (Mild) Stop: 10/25/18 05:58 Acetaminophen/Hydrocodone Bitart ([place] 5mg/325mg) 1 tab PO Q6H PRN PRN Reason: Pain (Severe) Stop: 10/25/18 05:58 Al Hydrox/Mg Hydrox/Simethicone (Maalox) 30 ml PO Q4HR PRN PRN Reason: GI DISTRESS Stop: 10/24/18 23:29 Bisacodyl (Dulcolax 10 Mg Supp) 10 mg RC DAILY PRN PRN Reason: Constipation Stop: 10/25/18 05:58 Haloperidol Lactate (Haldol) 2 mg PO BID [facility]; Protocol Stop: 10/27/18 16:59 Last Admin: 08/31/18 09:20 Dose: 2 mg Lorazepam (Ativan) 0.5 mg PO Q4HR PRN; Protocol PRN Reason: Anxiety Stop: 09/24/18 23:29 Last Admin: 08/29/18 03:02 Dose: 0.5 mg Magnesium Hydroxide (Milk Of Magnesia) 30 ml PO DAILY PRN PRN Reason: Constipation Stop: 10/25/18 05:58 Nitroglycerin (Nitrostat) 0.4 mg SL UD PRN PRN Reason: Chest Pain Stop: 10/25/18 05:58 Ondansetron HCl (Zofran Odt) 4 mg PO Q4H PRN PRN Reason: Nausea Stop: 10/25/18 05:58 Valproate Sodium (Depakene) 125 mg PO BID [facility]; Protocol Stop: 10/25/18 08:59 Last Admin: 08/31/18 09:21 Dose: 125 mg HEENT: NC/AT, PERRLA, EOMI, throat clear Neck: Supple, No JVD, No thyromegaly, No LAD Lungs: CTAB Abdomen: soft, non-tender, positive bowel sound Extremities: clear, no edema Neurological: no change Internal Medicine Assmt/Plan - Assessment Assessment: 1) ACUTE PSYCH DECOMPENSATION. 2) HISTORY OF COPD-clinically stable. 3) HISTORY OF CVA WITH LEFT SIDED HP 4) HISTORY OF CAD - Plan Plan: CONT WITH CURRENT INPATIENT PSYCH CARE AND SUPPORT CONT WITH OTHER MEDS SCHEDULED Nutritional Asmnt/Malnutr-PDOC - Dietary Evaluation Malnutrition Findings (Please click <Entered> for more info): Nutritional Asmnt/Malnutrition Start: 08/30/18 18: 18 Text: Status: Complete Freq: Protocol: Document 08/30/18 18:18 LCHENG (Rec: 08/30/18 18:24 [email or web address]) Nutritional Asmnt/Malnutrition Patient General Information Nutritional Screening Moderate Risk Diagnosis psychosis Pertinent Medical Hx/Surgical Hx asthma, COPD, muscle weakness, abnormal posture muscle weakness hemiplegia CVA Subjective Information Pt seen in bed awake, stated food has been good. Per EMR, PO intake 25-75%. Current Diet Order/ Nutrition Support psychosis Pertinent Medications reviewed Pertinent Labs no labs Nutritional Hx/Data Height 1.68 m Height (Calculated Centimeters) 167.6 Current Weight (lbs) 65.771 kg Weight (Calculated Kilograms) 65.8 Weight (Calculated Grams) 42098.9 [place] Body Weight 136 Body Mass Index (BMI) 23.3 Weight Status Approriate GI Symptoms GI Symptoms None Last BM 08/30 Difficult in: None Skin Integrity/Comment: leision Current %PO Good (75-100%) Estimated Nutritional Goals BEE in Kcals: Using Current wt Calories/Kcals/Kg 25-30 Kcals Calculated 2208-2522 Protein: Using Current wt Protein g/k Protein Calculated 66 Fluid: ml 1650-1980ml (1ml/kcal) Nutritional Problem No current Nutrition Prob Problem n/A Malnutrition Alert Is there a minimum of two criteria No selected? Query Text:Check all the applicable criteria. A minimum of two criteria are recommended for diagnosis of either severe or non-severe malnutrition. Malnutrition Related to Morbid Obesity Malnutrition related to morbid obesity No Intervention/Recommendation Comments 1. Continue with soft chopped diet as ordered. 2. Monitor PO intake, wt, labs and skin integrity 3. F/U as low risk in 7 days Expected Outcomes/Goals Expected Outcomes/Goals 1. PO intake to meet at least 75% of nutritional needs. 2. Wt stability, skin to remain intact, labs to approach WNL.
[2018-08-31] MEDS ORDERED: Therahoney Gel 42.5gm Tube TP SCH (14:00)
--- NOTE | 2018-08-31 15:54 | Progress Notes ---
DATE: 08/30/2018 PSYCHOLOGY PROGRESS NOTE SUBJECTIVE: The patient is seen and is interviewed. Case is discussed with staff. The patient presents as cooperative this visit. The patient states that his mood swings are coming down. The patient continues to state that he does not believe that he has a psychiatric condition or that he is psychologically impaired and does not need hospitalization or medications. The patient has poor insight into his illness. The patient is intermittently refusing medications according to the staff. OBJECTIVE: Mood is less irritable. Affect is mood congruent. Thought process shows to be confused with perseveration on the patient's medication and his condition. The patient denied any hallucinations or delusions. The patient is intermittently refusing medication. The patient continues to state he has no specific mental illness. The patient is generally isolative. ASSESSMENT AND PLAN: The patient's paranoia persists. We provided reality orientation, differentiation and integration. We encouraged the patient to follow through with staff direction. We provided remotivation for the patient to become compliant and stay compliant with his care and treatment. We provided coping strategies for phase of life issues. We encouraged the patient to demonstrate emotional and self regulation and to verbalize his concerns versus acting out. We will follow up in 2 days to continue the present treatment if the patient remains admitted on the unit. [facility]# [id number] [place]
--- NOTE | 2018-09-01 10:47 | Progress Notes ---
DATE: 08/31/2018 SUBJECTIVE: Staff was spoken to. The patient is interviewed. Mood is noted to be anxious. Affect is appropriate. Not suicidal or homicidal. Insight and judgment are noted to be improving. Impulse control is noted to be fair. No side effects to the medications are noted. The patient is stating that he is doing much better. He is glad that he is getting out of the hospital. ASSESSMENT: The patient is stabilizing. PLAN: To discharge the patient today for followup on outpatient basis. [facility]# [id number]
== END 2018-08-31 17:45 | DRG 885 ==
LOC: ER 21:22 → GERO2 22:14
PROVIDERS: ADMIT Psychiatry & Neurology Psychiatry; ATTEND Psychiatry & Neurology Psychiatry
DX: F29 Unspecified psychosis not due to a substance or known physiological condition (principal); F03.91 Unspecified dementia, unspecified severity, with behavioral disturbance; I69.354 Hemiplegia and hemiparesis following cerebral infarction affecting left non-dominant side; J44.9 Chronic obstructive pulmonary disease, unspecified; I25.10 Atherosclerotic heart disease of native coronary artery without angina pectoris
CPT/HCPCS: 83036-90; 93005; Z7610